=== PATIENT | male | born 1955 | race Two or more races ===

== ENCOUNTER 2018-03-28 14:02 | Emergency (ER) | payer OTHER ==
--- NOTE | 2018-03-28 14:28 | PDOC ---
Rapid Medical Evaluation Time Seen by Provider: 03/28/18 14:24 Medical Evaluation: Allergies Allergy/AdvReac Type Severity Reaction Status Date / Time No Known Allergies Allergy Verified 08/27/12 16:50 03/28/18 14:24 I have performed a brief in-person evaluation of this patient. The patient presents with a chief complaint of: elevated blood pressure. States sent from colonoscopy due to elevated blood pressure. Denies dizziness or headache at present Pertinent physical exam findings are: NAD HEENT: PERRLA even and unlabored breathing no pedal edema I have ordered the following: The patient will proceed to the ED for further evaluation. Discharge Disposition - Referrals Referrals: Kenyon Espinosa MD [Primary Care Provider] - - Patient Instructions - Post Discharge Activity
[2018-03-28 14:29] VITALS: BMI 33.8
[2018-03-28] MEDS ORDERED: LOSARTAN 50MG/HCTZ 12.5MG 1 TAB (FP) PO ONE (15:11)
[2018-03-28] MEDS ORDERED: NEBIVOLOL 5 MG TABLET (FP) PO ONE (15:11)
--- NOTE | 2018-03-28 15:19 | PDOC ---
History of Present Illness - General Chief Complaint: Blood Pressure Problem Stated Complaint: Blood Pressure Problem Time Seen by Provider: 03/28/18 14:24 - History of Present Illness Initial Comments: 03/28/18 15:13 63 yo M w/ PMH SUSAN (not on machine uses strips), HTN, herniated disc repair L3-4 , L breast lipoma removal, presenting from colonoscopy due to elevated BP. Pt said bp went as high as 221. Pt does not remember whether he took his bp meds this morning. reports that his pcp has been adjusting them over the past month to achieve better ctl. Today pt only sxs was VENTURA that was relieved after he had coffee. Denies fevers, chills, cp, sob, n/v, abd pain, urinary sxs, blurry vision, numbness, tingling, palpatations. Colonoscopy has been canceled, patient has appointment already scheduled with Dr. Shannon tomorrow as part of his f/u. Meds: losartan/HCTZ 100/25, bystolic 5HS, testosterone stopped 2 days ago. multivitamin SH: denies smoke drugs. etoh 3xwk PCP: Dr. Shannon GI: Dr. Spears Past History - Past Medical History Allergies/Adverse Reactions: Allergies Allergy/AdvReac Type Severity Reaction Status Date / Time No Known Allergies Allergy Verified 03/28/18 14:26 Home Medications: Ambulatory Orders Nebivolol [Bystolic -] 5 mg PO HS 03/22/18 Losartan/Hydrochlorothiazide [Losartan-Hctz 100-25 mg Tab] 1 tab PO DAILY Anemia: No Asthma: No Cancer: No Cardiac Disorders: No CVA: No COPD: No CHF: No Dementia: No Diabetes: No GI Disorders: No Disorders: Yes (BPH) HTN: Yes Hypercholesterolemia: No Liver Disease: No Seizures: No Thyroid Disease: No - Surgical History Abdominal Surgery: No Appendectomy: No Cardiac Surgery: No Cholecystectomy: No Lung Surgery: No Neurologic Surgery: Yes (HERNIATED DISK REPAIR X2) Orthopedic Surgery: No - Suicide/Smoking/Psychosocial Hx Smoking Status: No Smoking History: Never smoked Number of Cigarettes Smoked Daily: 0 Hx Alcohol Use: No Drug/Substance Use Hx: No Substance Use Type: None Hx Substance Use Treatment: No Review of Systems - Review of Systems Constitutional: Yes: See HPI HEENTM: Yes: See HPI Respiratory: Yes: See HPI Cardiac (ROS): Yes: See HPI ABD/GI: Yes: See HPI : Yes: See HPI Musculoskeletal: Yes: See HPI Integumentary: Yes: See HPI Neurological: Yes: See HPI Endocrine: Yes: See HPI Hematologic/Lymphatic: Yes: See HPI *Physical Exam - Vital Signs Last Vital Signs Temp Pulse Resp BP Pulse Ox 98.7 F 84 16 193/93 H 98 03/28/18 14:26 03/28/18 14:26 03/28/18 14:26 03/28/18 14:26 03/28/18 14:26 - Physical Exam Comments: 03/28/18 15:19 General: Well-nourished, NAD HEENT: NCAT, MMM Neck: supple. no lymphadenopathy Respiratory: CTAB cardio: RRR S1 S2 no m/r/g. Abdomen: +BS , soft, NTND Extremities: radial 2+ b/l. Warm, dry, no cyanosis, edema, clubbing or calf tenderness. Skin: intact. no rashes Neuro: Alert and oriented x3, strength sensation grossly intact. FTN nl, CN I - XII grossly intact Psych: Normal mood and affect Medical Decision Making - Medical Decision Making 03/28/18 15:20 63 yo M w/ PMH SUSAN (not on machine uses strips), HTN, herniated disc repair L3-4 , L breast lipoma removal, presenting from colonoscopy due to elevated BP. Pt does not remember whether he took his bp meds this morning. elevated BPs likely 2/2 pt not taking AM meds -will give pt home BP meds and monitor vitals -no need at this time for labs 03/28/18 16:26 pt received meds pt feeling well and wants to go home pt stable and ready for discharge pt has appointment w/ pcp kori. *DC/Admit/Observation/Transfer Diagnosis at time of Disposition: Hypertension Qualifiers: Hypertension type: unspecified Qualified Code(s): I10 - Essential (primary) hypertension - Discharge Dispostion Disposition: HOME Condition at time of disposition: Stable Decision to Admit order: No - Referrals Referrals: Gilles Shannon MD [Staff Physician] - - Patient Instructions Printed Discharge Instructions: DI for High Blood Pressure Additional Instructions: you came in because your blood pressure was elevated We gave you your home meds and your pressure improved Please continue your home meds Please reschedule your colonoscopy Please follow up with Dr. Shannon TOMORROW as scheduled. Please follow up with your screenplay writer. If you experience any chest pain, shortness of breath, blurry vision, worsening headache, nausea, vomit, numbness or tingling or weakness please call 911 or come back to the ER. - Post Discharge Activity
--- NOTE | 2018-03-28 15:26 | PDOC ---
Attending Attestation - HPI HPI: 03/28/18 15:32 The patient is a 63-year-old male, with a past medical history of HTN and SUSAN ( uses nasal strips), who presents to the ED with elevated blood pressure. Patient presented for his routine colonoscopy today and was sent to the ED when his BP was noted to be high. Patient was complaining of a headache while at the office that has now resolved. No medications were administered while at the office. Dr. Shannon (patients PCP) has been adjusting his BP medications for the past month. He is currently on Losartan (5mg PO HS) and Bystolic (1 tab PO daily). Patient is unsure if he took his BP medications this morning. Upon arrival to the ER, the patients BP was recorded to be 193/93. The patient denies any fever, chills, nausea, vomiting, diarrhea, or abdominal pain. Denies any shortness of breath or chest pain. Allergies: NKA Surgical History: Herniated disc repair x2, lipoma removal. Social History: Drinks 3x a week (will have a couple glasses of wine). PCP: Dr. Shannon <Nancy Chowdhury - Last Filed: 03/28/18 15:32> - Resident Resident Name: Toby Choudhary - ED Attending Attestation I have performed the following: I have examined & evaluated the patient, The case was reviewed & discussed with the resident, I agree w/resident's findings & plan - HPI HPI: 03/28/18 15:23 63-year-old male with hypertension recently established care with Dr. Shannon started on new antihypertensive regimen presented for his scheduled colonoscopy today and was found to have elevated blood pressure, referred to the emergency department. Likely skipped his morning blood pressure medicine, otherwise asymptomatic except for mild headache resolved with coffee. - Physicial Exam PE: 03/28/18 15:24 190/90, vitals otherwise normal well appearing, seated on stretcher texting on his cell phone, pleasant perrl, eomi neck supple s1s2 rrr, ctab, abd soft without pulsatile mass neuro intact - Medical Decision Making 03/28/18 15:25 63-year-old male with asymptomatic elevated blood pressure, here for evaluation. No red flags on history or physical exam to suggest end organ injury , likely occurring in the setting of skipping his medications as preparation for colonoscopy. Will dose his baseline regimen Reassess blood pressure, likely discharge. Colonoscopy has been canceled, patient has appointment already scheduled with Dr. Shannon tomorrow as part of his f/u. 03/28/18 16:18 bp 180/95. continues to feel well, asx. bp meds just arrived from pharmacy and administered. requesting d/c. stable for d/c after bp meds, understands return criteria, has his appt with Dr. Shannon scheduled for tomorrow. <Wesley Perry - Last Filed: 03/28/18 16:23> *DC/Admit/Observation/Transfer <Wesley Perry - Last Filed: 03/28/18 16:23> Diagnosis at time of Disposition: Hypertension Qualifiers: Hypertension type: unspecified Qualified Code(s): I10 - Essential (primary) hypertension - Discharge Dispostion Disposition: HOME Condition at time of disposition: Stable - Referrals Referrals: Gilles Shannon MD [Staff Physician] - - Patient Instructions Printed Discharge Instructions: DI for High Blood Pressure Additional Instructions: you came in because your blood pressure was elevated We gave you your home meds and your pressure improved Please continue your home meds Please reschedule your colonoscopy Please follow up with Dr. Shannon TOMORROW as scheduled. Please follow up with your diagnostic technologist. If you experience any chest pain, shortness of breath, blurry vision, worsening headache, nausea, vomit, numbness or tingling or weakness please call 911 or come back to the ER. - Post Discharge Activity Attestations - Attestations 03/28/18 15:33 Documentation prepared by Nancy Chowdhury, acting as medical insurance coding specialist for Wesley Perry MD. <Nancy Chowdhury - Last Filed: 03/28/18 15:32>
[2018-03-28 16:21] VITALS: BP 188/98; PULSE 54; TEMP 97.7
== END 2018-03-28 16:42 | disposition home or self-care (01) ==
LOC: JER 14:02
DX: I10 Essential (primary) hypertension (principal); G47.33 Obstructive sleep apnea (adult) (pediatric); N40.0 Benign prostatic hyperplasia without lower urinary tract symptoms; Z87.2 Personal history of diseases of the skin and subcutaneous tissue; Z87.39 Personal history of other diseases of the musculoskeletal system and connective tissue
CPT/HCPCS: 99281-25

== ENCOUNTER 2019-02-27 08:41 | Day surgery (SDC) | payer BC, OTHER ==
[2019-02-26 13:55] VITALS: BMI 33.0
[2019-02-27 10:45] VITALS: TEMP 97.5
[2019-02-27 14:14] VITALS: BP 153/77; PULSE 65
--- NOTE | 2019-02-28 18:56 | PATH ---
Surgical Pathology Report Patient Name: DENG JEAN [facility]. Rec. #: [id number] /Age/Gender: 1955 (Age: 64) / M Account: [id number] Location: [facility]-ENDOSCOPY Taken: 02/27/2019 Received: 02/27/2019 Reported: 02/28/2019 Physicians: German Espinosa D.O. Specimen(s) Received A: POLYPS TRANSVERSE COLON B: POLYP PROXIMAL TRANSVERSE C: POLYP RIGHT COLON D: HEPATIC FLEXURE POLYP E: POLYP DESCENDING COLON F: POLYP SIGMOID @ 30CM G: POLYP RECTUM Clinical History [place]-rectal screening Postoperative diagnosis: Colon polyps, diverticulosis, hemorrhoids Final Diagnosis A. TRANSVERSE COLON, POLYPS, POLYPECTOMY: TUBULAR ADENOMA(S). B. PROXIMAL TRANSVERSE COLON, POLYP, POLYPECTOMY: TUBULAR ADENOMA. C. COLON, RIGHT, POLYP, POLYPECTOMY: TUBULAR ADENOMA. D. COLON, HEPATIC FLEXURE, POLYP, POLYPECTOMY: TUBULAR ADENOMA. E. DESCENDING COLON, POLYP, POLYPECTOMY: TUBULAR ADENOMA. F. SIGMOID COLON, POLYP, 30 CM, POLYPECTOMY: TUBULAR ADENOMA. NO HIGH GRADE DYSPLASIA IDENTIFIED. G. RECTUM, POLYP, POLYPECTOMY: HYPERPLASTIC POLYP. Electronically Signed Staci Kearney M.D. Gross Description A. Received in formalin, labeled "polyps transverse colon" are 3 rueda, irregular portions of soft tissue measuring 0.3 and 0.6 cm. in greatest dimension. The specimens are submitted in toto in one cassette. B. Received in formalin, labeled "polyp proximal transverse" is a rueda, irregular portion of soft tissue measuring 0.6 cm. in greatest dimension. The specimen is submitted in toto in one cassette. C. Received in formalin, labeled "polyp right colon" are 3 rueda, irregular portions of soft tissue measuring 0.1-0.3 cm. in greatest dimension. The specimens are submitted in toto in one cassette. D. Received in formalin, labeled "hepatic flexure polyp" are 2 rueda, irregular portions of soft tissue measuring 0.1 and 0.2 cm. in greatest dimension. The specimens are submitted in toto in one cassette. E. Received in formalin, labeled "polyp descending" is a rueda, irregular portion of soft tissue measuring 0.2 cm. in greatest dimension. The specimen is submitted in toto in one cassette. F. Received in formalin, labeled "polyp sigmoid at 30 cm" is a pedunculated polyp measuring 1 cm. in greatest dimension. The base of specimen is inked in blue and then serially sectioned. The polyp is entirely submitted in 2 cassettes. G. Received in formalin, labeled "polyp rectum" are 2 rueda, irregular portions of soft tissue measuring 0.3 cm. in greatest dimension. The specimens are submitted in toto in one cassette. MLBaldemarZ/02/27/2019 santru/02/27/2019
== END 2019-02-27 11:40 | disposition home or self-care (01) ==
LOC: JASU-ENDO 08:41
PROVIDERS: ATTEND Internal Medicine Gastroenterology
PROC: 0DBL8ZX Excision of Transverse Colon, Via Natural or Artificial Opening Endoscopic, Diagnostic (ICD-10-PCS; 2019-02-27)
PROC: 0DBM8ZX Excision of Descending Colon, Via Natural or Artificial Opening Endoscopic, Diagnostic (ICD-10-PCS; 2019-02-27)
PROC: 0DBP8ZX Excision of Rectum, Via Natural or Artificial Opening Endoscopic, Diagnostic (ICD-10-PCS; 2019-02-27)
PROC: 0DBF8ZX Excision of Right Large Intestine, Via Natural or Artificial Opening Endoscopic, Diagnostic (ICD-10-PCS; 2019-02-27)
PROC: 3E0H8GC Introduction of Other Therapeutic Substance into Lower GI, Via Natural or Artificial Opening Endoscopic (ICD-10-PCS; 2019-02-27)
PROC: 0DBN8ZX Excision of Sigmoid Colon, Via Natural or Artificial Opening Endoscopic, Diagnostic (ICD-10-PCS; principal; 2019-02-27 09:00)
DX: Z12.11 Encounter for screening for malignant neoplasm of colon (principal); K63.89 Other specified diseases of intestine; K57.30 Diverticulosis of large intestine without perforation or abscess without bleeding; K62.1 Rectal polyp; D12.4 Benign neoplasm of descending colon; D12.5 Benign neoplasm of sigmoid colon; D12.3 Benign neoplasm of transverse colon; K64.8 Other hemorrhoids
CPT/HCPCS: 88305-TC